=== PATIENT | female | born 2000 | race Caucasian/White ===

== ENCOUNTER 2020-02-04 13:12 | Outpatient (REF) | payer OTHER, SELFPAY | END 2020-02-04 13:13 | disposition home or self-care (01) | LOC: HO.LAB 13:12 | PROVIDERS: Visit Provider Internal Medicine | DX: Z20.828 Contact with and (suspected) exposure to other viral communicable diseases (principal) | CPT/HCPCS: C9803; U0003 ==

== ENCOUNTER 2020-12-24 15:18 | Emergency (ER) | payer OTHER, SELFPAY ==
[2020-12-24 16:38] VITALS: BP 123/72; PULSE 78; RESP 16; TEMP 37.2; O2SAT 100; BMI 33.3
--- NOTE | 2020-12-24 19:32 | ED_ITS ---
HPI - General Adult General Chief complaint: Eye Problems Stated complaint: Eye swelling Source: patient Mode of arrival: ambulatory Limitations: no limitations History of Present Illness HPI narrative: Patient presents to the ED for left eye redness since yesterday with itching and mild discomfort. patient states having white discharge from conjuctiva. patient states she wears contacts, but does not sleep with them. patient denies any recent head trauma or eye trauma. patient states no headache Related Data Previous Rx's Medication Instructions Recorded ciprofloxacin HCl 0.3 % eye drops 1 drp OPHTHALMIC-LEFT Q6H 7 Days 12/24/20 #10 ml Allergies Allergy/AdvReac Type Severity Reaction Status Date / Time No Known Allergies Allergy Unverified 12/06/19 16:58 [No Known Allergies*] cats Allergy Unknown Uncoded 07/16/11 00:00 dust Allergy Unknown Uncoded 07/16/11 00:00 Review of Systems Review of Systems: Yes all other systems are reviewed and are negative Constitutional: Constitutional: Reports as per HPI and Reports no additional constitutional complaints Eyes: Eyes: Reports as per HPI, Reports no additional eye complaints, Denies change in vision, Denies decreased night vision, Denies diplopia, Reports irritation, Reports itchy eyes, Denies loss of peripheral vision, Denies loss of vision and Denies other visual disturbances Comments: left red eye ENT: Reports system reviewed and no additional complaints, except as d ocumented and Reports as per HPI Cardiovascular: Cardiovascular: Reports as per HPI and Reports no additional cardiovascular complaints Respiratory: Respiratory: Reports as per HPI and Reports no additional respiratory complaints Gastrointestinal: Gastrointestinal: Reports as per HPI and Reports no additional gastrointestinal complaints Musculoskeletal: Musculoskeletal: Reports no additional musculoskeletal complaints and Reports as per HPI Neurologic: Reports system reviewed and no additional complaints, except as documented, Reports as per HPI and Denies loss of vision Psychiatric: Psychiatric: Reports no additional psychiatric complaints and Reports as per HPI Allergic/Immunologic: Allergic/Immunologic: Reports itchy eyes PMFSH Social History Social History Advance Directives: No Advance Directives Information Provided: No Patient : No Physical Exam Vital Signs: Vital Signs: Last Vital Signs Temp 98.9 F 12/24/20 16:38 Pulse 78 12/24/20 16:38 Resp 16 12/24/20 16:38 BP 123/72 12/24/20 16:38 Pulse Ox 100 12/24/20 16:38 Body Mass Index 33.3 Const: General: cooperative, healthy appearing, comfortable, no acute distress, well developed, alert, awake and Physically active Orientation/consciousness: oriented to time and patient oriented x3 HENMT: Head: Yes normal to inspection, Yes No palpable skull fracture present, Yes normocephalic and Yes atraumatic Eyes: Other: Left eye:Positive for erythema of conjunctiva/scleral and watery discharge. Negative for photophobia or nystagmus. Right eye are normal Neck: Neck: Yes normal visual inspection, Yes full ROM, Yes no lymphadenopathy, Yes no meningeal signs, Yes trachea midline, Yes supple and No tender Chest: Chest palpation & inspection: normal inspection of the chest and normal palpation of entire chest wall Resp: Effort & Inspection: normal respiratory effort and able to speak in complete sentences Cardio: Jugular venous distension: no JVD Heart sounds: S1 normal heart sound present and S2 normal heart sound present GI: Inspection: Yes normal to inspection and No abdominal wall ecchymosis Palpation (GI): Soft to palpation, not firm, nontender, no guarding and not rigid : General: No CVA tenderness and Yes no CVA tenderness Back/Spine/Pelvis: Back: no CVA tenderness, No CVA tenderness and No back tenderness Skin: General skin exam: no rashes or lesions noted and elasticity normal Neuro: General: oriented to time, patient oriented x3, no meningeal signs and CN's II-XI intact bilaterally Cranial nerves: Yes CN's II-XII intact bilaterally Extrem: General: Yes normal to inspection and Yes full ROM Psych: Appearance: grossly normal, well kempt and not disheveled Course Course Course Narrative: Patient will have eye test Reevaluation(s) Reevaluation #1: Fluorescein dye test negative for any corneal abrasion/ulcer or dendrities. Left eye tonometry pressure is 2. Right eye tonomretry pressure is 5. Negative for nystagmus. Negative for eyelid swelling. Negative for foreign body. Negative for mass on examination of eyelids. Visual acuity of right eye 20/100 and left eye 20/50. Patient did not have her contacts or eyeglasses during exam. Patient discharged with Cipro due to eye contact use. Time: 19:59 Medical Decision Making MDM Narrative Medical decision making narrative: Bacterial conjunctivitis Discharge Plan Discharge Clinical Impression: Bacterial conjunctivitis Patient Disposition: Home, Self-Care Instructions: Conjunctivitis (ED) Additional Instructions: You are given eyedrops for bacterial conjunctivitis. Return to the ED for worsening redness, eye pain, loss of vision, change in vision, headache, fever, chills, photophobia, or any other concerning symptoms. Please follow-up with the eye doctor Prescriptions: New ciprofloxacin HCl 0.3 % drops 1 drp ophthalmic-Left Q6H 7 Days Qty: 10 RF: 0 Stand Alone Forms: Work/School Release Interventions: ED Discharge Assessment Last Done: 12/24/20 20:19 Discharge Date/Time: 12/24/20 20:22 Print Language: Micronesian
[2020-12-24] MEDS: Fluorescein Sodium STRIP 1 STRIP EYE-LEFT (19:39)
[2020-12-24] MEDS: Tetracaine HCl/PF 0.5% Oph Sol 4 ML DROPS 3 DROP EYE-LEFT (19:40)
--- NOTE | 2020-12-24 19:53 | PC.NURSE ---
PT DID NOT BRING CONTACT LENSES WITH HER DO TO EYE REDNESS AND NO GLASSES.
== END 2020-12-24 20:22 | disposition home or self-care (01) ==
PROVIDERS: Emergency Provider Internal Medicine
DX: H10.89 Other conjunctivitis (principal)
CPT/HCPCS: 99283; 99284